=== PATIENT | female | born 1965 | race Caucasian/White ===

== ENCOUNTER 2016-07-29 15:31 | Emergency (ER) | payer BC ==
[~2016-07-29] VITALS: Ht 152.4 cm; Wt 90.0 kg
[~2016-07-29 15:31] MED LIST: FAMO-18 PO; HYDR-906 PO; TEN25
[2016-07-29 15:44] VITALS: Ht 152.4 cm; Wt 90.0 kg
[2016-07-29] MEDS ORDERED: KETOROLAC 60 MG INJ IM STA (17:55)
[2016-07-29] MEDS ORDERED: ULT50 PO (19:13)
--- NOTE | 2016-07-29 19:13 | ERD ---
ER Documentation Chief Complaint Date/Time DATE: 07/29/16 TIME: 19:11 Chief Complaint back pain x4 days HPI This is a 50-year-old female presents to the ER with a cough for a month. Patient states that she has been to her primary care doctor twice in that she has had 2 rounds of antibiotics, however cough is still going on. Patient has not developed chest pain while coughing and upper back pain. Patient states that upper back pain has gotten significantly worse over the last 2 days. Patient denies any shortness of breath. Chest pain is nonexertional. Patient' s cough is dry. Patient also got a course of steroids, this helped a little bit however cough is still not resolved. Patient denies any fevers or chills. She denies any sore throat, runny nose or ear pain. ROS 12 point review of systems was done, all negative except per HPI. Medications Home Meds Active Scripts Levofloxacin* (Levaquin*) 750 Mg Tablet, 750 MG PO DAILY for 5 Days, TAB Prov:TAWNY HAYWOOD 07/29/16 Ibuprofen* (Motrin*) 600 Mg Tab, 600 MG PO Q6, #30 TAB Prov:TAWNY HAYWODO 07/29/16 Tramadol HCl (Tramadol HCl) 50 Mg Tablet, 50 MG PO Q4 Y for PAIN, #20 TAB Prov:TAWNY HAYWOOD 07/29/16 Hydrocodone/Acetaminophen ([place] 5-325 Tablet) 1 Each Tablet, 1 TAB PO Q6H Y for PAIN, #10 TAB Prov:TAWNY HAYWOOD 04/13/16 Famotidine* (Pepcid*) 20 Mg Tablet, 20 MG PO BID for 14 Days, TAB Prov:TAWNY HAYWOOD 04/13/16 Reported Medications Atenolol (Tenormin) 25 Mg Tab 05/23/10 Allergies Allergies: Coded Allergies: No Known Allergy (Verified Allergy, Mild, 05/23/10) PMhx/Soc History of Surgery: Yes (GALL BLADDER, HYSTERECTOMY) Anesthesia Reaction: No Hx Neurological Disorder: No Hx Respiratory Disorders: No Hx Cardiac Disorders: Yes (HTN) Hx Psychiatric Problems: No Hx Miscellaneous Medical Probl: No Hx Alcohol Use: No Hx Substance Use: No Hx Tobacco Use: No Smoking Status: Never smoker Physical Exam Vitals Vital Signs Date Time Temp Pulse Resp B/P Pulse Ox O2 Delivery O2 Flow Rate FiO2 07/29/16 15:44 98.9 90 18 156/76 99 Physical Exam GENERAL: The patient is well-developed, well-nourished, in no acute distress. NECK: Cervical spine is non tender with no step off. Supple, no nuchal rigidity HEENT: Atraumatic. Pupils equal, round and reactive to light. Extraocular muscles are grossly intact. Conjunctivae pink, no discharge. Bilateral tympanic membranes are clear with no evidence of erythema, effusion or dulling of the light reflex. Tonsilar erythema with no exudates or uvular deviation. Clear rhinorrhea. RESPIRATORY: Clear to auscultation bilaterally. There are no rales, wheezes or rhonchi. HEART: Regular rate and rhythm. No murmurs, clicks, rubs or gallops. EXTREMITIES: No clubbing or cyanosis. Full range of motion. Grossly neurovascularly intact. NEUROLOGIC: Alert and oriented. BACK: Patient is tender to palpation along thoracic paraspinal muscles, she does have some thoracic midline spine tenderness. No step-offs no crepitus SKIN: There is no rash. The skin is warm and dry. Results 24 hrs Current Medications Medications (Trade) Dose Ordered Sig/Adwoa Route PRN Reason Start Time Stop Time Status Last Admin Dose Admin Ketorolac Tromethamine (Toradol) 60 mg ONCE STAT IM 07/29/16 17:55 07/29/16 17:57 DC 07/29/16 18:54 EKG [address] no st elevation no t wave inversion. Read by Dr. Gruber Procedures/MDM This is a 50-year-old female that presents to the ER with persistent cough and back pain. Patient was found to have pneumonia. She will be sent home with [facility]. In regards to patient's back pain and chest pain is likely musculoskeletal secondary to constant coughing. Patient is afebrile and well- appearing she is not hypoxic. Patient is able to tolerate p.o. fluids. Suspicion for cardiac etiology of chest pain is low. Patient's EKG was normal. Patient for other intrathoracic abnormality such as pneumothorax, pulmonary embolism is low. She is stable for outpatient therapy. Patient is to follow- up with her primary care doctor within 1-2 days return to ER sooner if symptoms worsen. My medical decision making was shared with the patient she understands and agrees with plan. Departure Diagnosis: Primary Impression: Back pain Additional Impression: Bronchitis Condition: Stable TAWNY HAYWOOD Jul 29, 2016 19:13
[2016-07-29] MEDS ORDERED: IBUP-1542 PO (19:14)
--- NOTE | 2016-07-29 19:32 | RADRPT ---
PROCEDURE: XR Chest. CLINICAL INDICATION: Cough. TECHNIQUE: Single frontal chest x-ray. COMPARISON: 04/13/2016 FINDINGS: The lungs are hypoinflated. There is mild patchy right lower lobe infiltrate. No pneumothorax or p leural effusion is seen. The cardiomediastinal silhouette is unremarkable. The osseous structures are grossly unremarkable. IMPRESSION: 1. Mild patchy right lower lobe infiltrate. 2. Hypoinflation. RPTAT: QQ .Michael Garcia MD, MD Date Time Electronically viewed and signed by .Michael Garcia MD, MD on 07/29/2016 19:32 .A/
--- NOTE | 2016-07-29 19:37 | RADRPT ---
PROCEDURE: XR thoracic Spine. CLINICAL INDICATION: Back pain. TECHNIQUE: AP and lateral views of the thoracic spine were performed. COMPARISON: There are no similar studies submitted for comparison. FINDINGS: SCOLIOSIS: Minimal levoscoliosis. KYPHOSIS: Maintained. VERTEBRAL BODY HEIGHTS: Maintained without evidence of compression fracture. ALLIGNMENT: Within normal limits. DISCS: The discs are normal in height. OSSEOUS STRUCTURES: There is no destructive osseous lesion. SOFT TISSUE: The visualized portions of the heart and lungs are within normal limits.There are surgi shan clips within the right upper quadrant suggesting prior cholecystectomy. IMPRESSION: No evidence of compression fracture. Further findings as detailed above. RPTAT: PP .Isrrael Stacy MD, Date Time Electronically viewed and signed by .Isrrael Stacy MD, on 07/29/2016 19:37 .F/
[2016-07-29] MEDS ORDERED: LEVO750T25 PO (19:39)
[2016-07-29 20:35] VITALS: BP 140/69; PULSE 78; RESP 20; TEMP 98.8
== END 2016-07-29 20:36 | disposition home or self-care (01) ==
LOC: FTE 15:31
DX: M54.6 Pain in thoracic spine (principal); I10 Essential (primary) hypertension; J20.9 Acute bronchitis, unspecified
CPT/HCPCS: 71010; 72072; 93005; 96372; J1885; Z7502

== ENCOUNTER 2018-10-08 19:16 | Emergency (ER) | payer BC, OTHER ==
[~2018-10-08] VITALS: Ht 160 cm; Wt 101.3 kg
[~2018-10-08 19:16] MED LIST changes: +ATEN-138; -FAMO-18 PO; +FAMO-96 PO; +HYDR-4011 PO; -HYDR-906 PO; +IBUP-1542 PO; +LEVO750T25 PO; -TEN25; +TRAM50TA2 PO
[2018-10-08 20:04] VITALS: Ht 160 cm; Wt 101.3 kg
[2018-10-08] MEDS ORDERED: morphine 4 MG/ML VIAL IV STA (21:17)
[2018-10-08] MEDS ORDERED: ONDANSETRON 4 MG INJ IV STA ×2 (21:17→23:02)
[2018-10-08] MEDS ORDERED: SOD CHLORIDE 0.9% 500 ML IV STA (21:17)
--- NOTE | 2018-10-08 21:23 | ERD ---
ER Documentation Chief Complaint Chief Complaint BILATERAL FLANK PAIN, DYSURIA, HEMATURIA HPI Very pleasant 53-year-old female history of hypertension, BMI greater than 30 who presents to the emergency room complaining of dysuria. Patient scrubs approximate 48 hours of symptoms including superpubic abdominal discomfort rating to the bilateral lower back. Patient describes dysuria urgency and frequency and scant gross hematuria. Patient denies any colicky pain. The pain is moderate and throbbing. Patient's blood pressure is noted to be in the 200 range. She describes compliance with her blood pressure medication. No ripping or tearing sensation, migratory pain or numbness or tingling or motor deficits. ROS All systems reviewed and are negative except as per history of present illness. Medications Home Meds Active Scripts Cephalexin* (Keflex*) 500 Mg Capsule, 500 MG PO BID for 7 Days, CAP Prov:LASHAUN ROMERO MD 10/08/18 Ibuprofen* (Motrin*) 800 Mg Tab, 800 MG PO Q6H PRN for PAIN AND OR ELEVATED TEMP, #30 TAB Prov:LASHAUN ROMERO MD 10/08/18 Ibuprofen* (Motrin*) 600 Mg Tab, 600 MG PO Q6, #30 TAB Prov:TAWNY HAYWOOD 07/29/16 Famotidine* (Pepcid*) 20 Mg Tablet, 20 MG PO BID for 14 Days, TAB Prov:TAWNY HAYWOOD 04/13/16 Reported Medications Ibuprofen* (Ibuprofen*) 800 Mg Tablet, 800 MG PO Q6H PRN for PAIN LEVEL 7-10 10/08/18 Carvedilol* (Carvedilol*) 3.125 Mg Tablet, 3.125 MG PO BID for 90 Days, #180 10/08/18 Amlodipine Besylate* (Amlodipine Besylate*) 2.5 Mg Tablet, 5 MG PO QAM for 90 Days, #90 TAKE 2 TABLETS BY MOUTH IN THE MORNING 10/08/18 Ondansetron Hcl* (Ondansetron Hcl*) 4 Mg Tablet, 4 MG PO DAILY PRN for NAUSEA AND/OR VOMITING for 6 Days, #24 10/08/18 Fexofenadine Hcl* (Fexofenadine Hcl*) 60 Mg Tablet, 60 MG PO QAM for 30 Days, #30 10/08/18 Discontinued Reported Medications Atenolol (Tenormin) 25 Mg Tab 05/23/10 Discontinued Scripts Levofloxacin* (Levaquin*) 750 Mg Tablet, 750 MG PO DAILY for 5 Days, TAB Prov:TAWNY HAYWOOD 07/29/16 Tramadol HCl (Tramadol HCl) 50 Mg Tablet, 50 MG PO Q4 PRN for PAIN, #20 TAB Prov:TAWNY HAYWOOD 07/29/16 Hydrocodone/Acetaminophen ([place] 5-325 Tablet) 1 Each Tablet, 1 TAB PO Q6H PRN for PAIN, #10 TAB Prov:TAWNY HAYWOOD 04/13/16 Allergies Allergies: Coded Allergies: No Known Allergy (Unverified , 10/08/18) PMhx/Soc History of Surgery: Yes (GALL BLADDER, HYSTERECTOMY) Anesthesia Reaction: No Hx Neurological Disorder: No Hx Respiratory Disorders: No Hx Cardiac Disorders: Yes (HTN) Hx Psychiatric Problems: No Hx Miscellaneous Medical Probl: No Hx Alcohol Use: No Hx Substance Use: No Hx Tobacco Use: No FmHx Family History: No diabetes Physical Exam Vitals Vital Signs Date Temp Pulse Resp B/P (MAP) Pulse Ox O2 O2 Flow FiO2 Time Delivery Rate 10/08/18 85 19 131/71 97 Room Air 23:12 (91) 10/08/18 97.3 97 20 227/102 98 20:04 (143) Physical Exam General: Well developed, well nourished, no acute distress Head: Normocephalic, atraumatic. Eyes: Pupils equally reactive, EOM intact ENT: Moist mucous membranes Neck: Supple, no lymphadenopathy Respiratory: Lungs clear bilaterally, no distress Cardiovascular: RRR, no murmurs, rubs, or gallops Abdominal: Soft, mild suprapubic abdominal discomfort without rebound or guarding, no peritonitis, no pulsatile mass : Deferred MSK: No edema, no unilateral swelling, 5/5 strength Neurologic: Alert and oriented, moving all extremities, normal speech, no focal weakness, no cerebellar signs Skin: No rash Psych: Normal mood Result Diagram: 10/08/18214410/08/182144 Results 24 hrs Laboratory Tests Test 10/08/18 21:45 White Blood Count 10.4 10^3/ul Red Blood Count 4.78 10^6/ul Hemoglobin 14.1 g/dl Hematocrit 42.2 % Mean Corpuscular Volume 88.3 fl Mean Corpuscular Hemoglobin 29.5 pg Mean Corpuscular Hemoglobin Concent 33.4 g/dl Red Cell Distribution Width 13.1 % Platelet Count 252 10^3/UL Mean Platelet Volume 11.8 fl Immature Granulocytes % 0.400 % Neutrophils % 63.2 % Lymphocytes % 24.9 % Monocytes % 6.4 % Eosinophils % 4.6 % Basophils % 0.5 % Nucleated Red Blood Cells % 0.0 /100WBC Immature Granulocytes # 0.040 10^3/ul Neutrophils # 6.6 10^3/ul Lymphocytes # 2.6 10^3/ul Monocytes # 0.7 10^3/ul Eosinophils # 0.5 10^3/ul Basophils # 0.1 10^3/ul Nucleated Red Blood Cells # 0.0 10^3/ul Urine Color COLORLESS Urine Clarity CLEAR Urine pH 7.0 Urine Specific [place] 1.003 Urine Ketones NEGATIVE mg/dL Urine Nitrite NEGATIVE mg/dL Urine Bilirubin NEGATIVE mg/dL Urine Urobilinogen NEGATIVE mg/dL Urine Leukocyte Esterase 2+ Bill/ul Urine Microscopic RBC 2 /HPF Urine Microscopic WBC 13 /HPF Urine Bacteria FEW /HPF Urine Hemoglobin 3+ mg/dL Urine Glucose NEGATIVE mg/dL Urine Total Protein NEGATIVE mg/dl Sodium Level 143 mmol/L Potassium Level 5.3 mmol/L Chloride Level 105 mmol/L Carbon Dioxide Level 29 mmol/L Anion Gap 9 Blood Urea Nitrogen 11 mg/dl Creatinine 0.76 mg/dl Est Glomerular Filtrat Rate mL/min > 60 mL/min Glucose Level 146 mg/dl Calcium Level 10.1 mg/dl Total Bilirubin 0.1 mg/dl Direct Bilirubin 0.00 mg/dl Indirect Bilirubin 0.1 mg/dl Aspartate Amino Transf (AST/SGOT) 47 IU/L Alanine Aminotransferase (ALT/SGPT) 50 IU/L Alkaline Phosphatase 149 IU/L Total Protein 8.8 g/dl Albumin 4.6 g/dl Globulin 4.20 g/dl Albumin/Globulin Ratio 1.09 Lipase 137 U/L Current Medications Medications Dose Sig/Adwoa Start Time Status Last (Trade) Ordered Route PRN Stop Time Admin Dose Reason Admin Sodium 500 ml @ Q1H STAT 10/08/18 DC 10/08/18 Chloride 500 mls/hr IV 21:17 21:42 10/08/18 22:16 Morphine 4 mg ONCE STAT 10/08/18 DC 10/08/18 Sulfate IV 21:17 21:42 (morphine) 10/08/18 21:18 Ondansetron 4 mg ONCE STAT 10/08/18 DC 10/08/18 HCl (Zofran IV 21:17 21:42 Inj) 10/08/18 21:18 Ondansetron 4 mg ONCE STAT 10/08/18 DC 10/08/18 HCl (Zofran IV 23:02 23:11 Inj) 10/08/18 23:03 Ceftriaxone 50 ml @ ONCE ONCE 10/08/18 Sodium 100 mls/hr IVPB 23:30 10/08/18 23:59 Procedures/MDM EKG, MONITORS, & DIAGNOSTIC IMAGING: CT abdomen and pelvis: IMPRESSION: No acute abnormality identified within the abdomen and pelvis. 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 Status post cholecystectomy and hysterectomy. LAB INTERPRETATION: I reviewed the laboratory testing and it shows urinary tract infection MEDICAL DECISION MAKING: Patient presents with dysuria urgency frequency and hematuria as well as bilateral lower back pain. The patient does have elevated blood pressure with a known history of hypertension. While the patient does have abdominal pain and lower back pain I do not believe this is consistent with acute aortic dissection. The patient is 48 hours of symptoms without migratory symptoms, her pain is moderate at this time. She has a better alternative diagnosis. I do not believe CTA of the abdomen pelvis is absolutely necessary at this time. The patient's blood pressure does not improve with pain control consider CT imaging with IV contrast if no better alternative diagnosis is revealed. ER COURSE: * Laboratory testing and diagnostic imaging consistent with urinary tract infection. Blood pressure improved without Significant intervention other than pain control medication * Again very low clinical concern for aortic process. The patient's symptoms are improved. Patient has urinary tract infection. Dose of ceftriaxone provided. The patient can be safely discharged. Return precautions discussed. CONSULTATION: [None] DISPOSITION PLAN: The patient does not have an identifiable emergent medical condition that warrants inpatient hospitalization at this time. The patient is deemed safe for discharge with outpatient follow-up. We discussed follow up with the patient's primary care doctor within 24 to 48 hours as needed. We also discussed return to the emergency room for worsening symptoms or worsening condition. Outpatient referral: [None required] Discharge Medications: Keflex, Motrin Departure Diagnosis: Primary Impression: Abdominal pain Abdominal location: generalized Qualified Codes: R10.84 - Generalized abdominal pain Additional Impressions: Hypertensive urgency UTI (urinary tract infection) Urinary tract infection type: acute cystitis Hematuria presence: without hematuria Qualified Codes: N30.00 - Acute cystitis without hematuria Condition: LASHAUN Lemus MD Oct 08, 2018 21:23
[2018-10-08] MEDS ORDERED: AMLO2.5T78 PO (23:07)
[2018-10-08] MEDS ORDERED: IBUP-1544 PO (23:07)
[2018-10-08] MEDS ORDERED: FEXO60TA8 PO (23:07)
[2018-10-08] MEDS ORDERED: CARV3.1260 PO (23:07)
[2018-10-08] MEDS ORDERED: ONDA4TAB95 PO (23:07)
[2018-10-08] MEDS ORDERED: IBUP800T48 PO (23:26)
[2018-10-08] MEDS ORDERED: CEPH-443 PO (23:26)
[2018-10-08] MEDS ORDERED: CEFTRIAXONE 1 GM/50 ML (PMX) 50 ML IVPB ONE (23:30)
[2018-10-09 00:03] VITALS: BP 133/66; PULSE 79; RESP 18
== END 2018-10-09 00:11 | disposition home or self-care (01) ==
LOC: E/R 19:16
DX: N30.00 Acute cystitis without hematuria (principal); I10 Essential (primary) hypertension; I16.0 Hypertensive urgency
CPT/HCPCS: 36415; 74176; 80053; 81001; 83690; 85025; 87086; 96361; 96365; 96375; 96376; J0696; J2270; J2405; J7040; Z7502